=== PATIENT | female | born 1945 | race Hispanic/Latino ===

== ENCOUNTER 2022-08-31 11:47 | Emergency (ER) | payer MEDICARE ==
[~2022-08-31] VITALS: Ht 142.2 cm; Wt 64.4 kg
[2022-08-31] MEDS ORDERED: METFORMIN HCL500 MG PO (12:42)
[2022-08-31] MEDS ORDERED: CICLOPIROX15 GM TOP (12:42)
[2022-08-31] MEDS ORDERED: LISINOPRIL10 MG PO (12:42)
[2022-08-31] MEDS ORDERED: AMMONIUM LACTA385 GM (12:42)
[2022-08-31] MEDS ORDERED: MONTELUKAST SOD10 MG PO (12:42)
[2022-08-31] MEDS ORDERED: FLONASE ALLERG9.9 ML INH (12:42)
[2022-08-31] MEDS ORDERED: CARVEDILOL12.5 MG PO (12:42)
[2022-08-31] MEDS ORDERED: LASIX20 MG PO (12:42)
[2022-08-31] MEDS ORDERED: [UNRECOGNIZED DRUG - REMARK] (12:42)
[2022-08-31] MEDS ORDERED: NITROGLYCERIN0.4 MG SL (12:42)
[2022-08-31] MEDS ORDERED: PLAVIX75 MG PO (12:42)
[2022-08-31] MEDS ORDERED: PROTONIX20 MG PO (12:42)
[2022-08-31] MEDS ORDERED: VOLTAREN ARTHRI20 GM (12:42)
[2022-08-31] MEDS ORDERED: CHLORHEXIDINE118 ML MT (12:42)
[2022-08-31] MEDS ORDERED: ATORVASTATIN CA20 MG PO (12:42)
[2022-08-31] MEDS ORDERED: GLYCOPYRRO0.2 MG/1 M PO (12:42)
[2022-08-31] MEDS ORDERED: OXYBUTYNIN CHLOR5 MG PO (12:42)
[2022-08-31] MEDS ORDERED: BACLOFEN10 MG PO (12:42)
[2022-08-31] MEDS ORDERED: HYDROCODONE-AC118 M1 (12:42)
[2022-08-31] MEDS ORDERED: ASPIRIN81 MG PO (12:42)
[2022-08-31] MEDS ORDERED: B COMPLEX1 EACH (12:42)
[2022-08-31] MEDS ORDERED: CLONAZEPAM0.5 MG PO (12:42)
[2022-08-31] MEDS ORDERED: FAMOTIDINE20 MG PO (12:42)
[2022-08-31] MEDS ORDERED: GABAPENTIN300 MG PO (12:42)
[2022-08-31] MEDS ORDERED: SODIUM CHLORIDE 0.9% 1000ML 1,000 ML IV SCH (13:15)
[2022-08-31] MEDS ORDERED: IOPAMIDOL 370 MG/ML 100 ML INFUS..BTL INJ ONE (13:24)
[2022-08-31 13:31] VITALS: O2SAT 97
[2022-08-31] MEDS ORDERED: SODIUM CHLORIDE 0.9% 1000ML 1,000 ML ONE (13:56)
[2022-08-31] MEDS ORDERED: CEFTRIAXONE 1 GM VIAL ONE (13:57)
[2022-08-31] MEDS ORDERED: CEFUROXIME500 MG PO (15:07)
[2022-08-31 15:24] VITALS: BP 119/62
== END 2022-08-31 15:25 | disposition home or self-care (01) ==
LOC: FSED 11:55
DX: R10.31 Right lower quadrant pain (principal); K57.30 Diverticulosis of large intestine without perforation or abscess without bleeding; N39.0 Urinary tract infection, site not specified; E11.9 Type 2 diabetes mellitus without complications; I50.9 Heart failure, unspecified; I10 Essential (primary) hypertension; I25.10 Atherosclerotic heart disease of native coronary artery without angina pectoris; I25.2 Old myocardial infarction; Z95.5 Presence of coronary angioplasty implant and graft
CPT/HCPCS: 74177; 80048; 80076; 81003; 83880; 85025; 87086; 87186; 99284; J0696; J7030; Q9967